=== PATIENT | female | born 1990 | race Caucasian/White ===

== ENCOUNTER 2019-04-15 01:48 | Outpatient (CLI) | payer MEDICAID, SELFPAY ==
--- NOTE | 2019-04-15 12:53 | DI.US_ITS ---
EXAM: US AXILLA RT CLINICAL HISTORY: AXILLARY ACUTE LYMPHANGITIS RT L03.121. TECHNIQUE: Ultrasound performed using standard protocol. COMPARISON: No exams were available for comparison FINDINGS: The ultrasound examination of the right axilla reveals no evidence of a mass or lymphadenopathy.
--- NOTE | 2019-04-15 13:14 | DI.RAD_ITS ---
EXAM: XR KNEE RT 3V AP,LAT,CHOLO INDICATION: KNEE JOINT PAIN M25.561 WEIGHT BEARING COMPARISON: No exams were available for comparison TECHNIQUE: 2D digital imaging was performed. FINDINGS: The bony structures are normally mineralized. Joint spaces intact. There is no evidence of a joint ef fusion. There is no evidence of a fracture or dislocation.
== END 2019-04-15 02:08 ==
PROVIDERS: PCP Nurse Practitioner Family; Visit Provider Nurse Practitioner Family
DX: M25.561 Pain in right knee (principal); L03.121 Acute lymphangitis of right axilla
CPT/HCPCS: 73562; 76642

== ENCOUNTER 2019-05-18 12:56 | Outpatient (CLI) | payer MEDICAID, SELFPAY ==
--- NOTE | 2019-05-18 10:47 | DI.RAD_ITS ---
EXAM: XR KNEES MERCHANT ONLY INDICATION: f/u. COMPARISON: XR KNEE RT 3V AP,LAT,CHOLO from 04/15/2019 TECHNIQUE: 2D digital imaging was performed. FINDINGS: Merchant projections of both knees reveal no evident abnormality involving the patellofemoral joint.
== END 2019-05-18 13:16 ==
PROVIDERS: PCP Nurse Practitioner Family; Visit Provider Orthopaedic Surgery
DX: M25.561 Pain in right knee (principal); M22.2X1 Patellofemoral disorders, right knee
CPT/HCPCS: 73565

== ENCOUNTER 2020-02-24 16:53 | Outpatient (REF) | payer MEDICAID, SELFPAY ==
[2020-02-27 15:17] LABS: SARS-CoV-2 RNA Undetected (Undetected); SARS-CoV-2 Specimen Source Nasopharynx
== END 2020-02-24 17:13 ==
LOC: NCHCN 16:53
PROVIDERS: PCP Nurse Practitioner Family; Visit Provider Physician Assistant
DX: R05 Cough (principal)
CPT/HCPCS: U0003

== ENCOUNTER 2020-03-16 09:13 | Outpatient (REF) | payer MEDICAID, SELFPAY ==
[2020-03-16 21:38] LABS: BUN 8 mg/dL (7-18); Calcium 8.7 mg/dL (8.5-10.1); Chloride 105 mmol/L (98-107); Glucose 85 mg/dL (74-106); Potassium 4.1 mmol/L (3.5-5.1); Sodium 140 mmol/L (136-145); TSH (W/Ref FT4) 1.36 uIU/mL (0.36-3.74)
[2020-03-19 09:26] LABS: Vitamin D 25 Total 20.4 ng/ml (30-100)
== END 2020-03-16 09:33 ==
LOC: NCHCN 09:13
PROVIDERS: PCP Nurse Practitioner Family; Visit Provider Nurse Practitioner Psychiatric/Mental Health
DX: F43.0 Acute stress reaction (principal)
CPT/HCPCS: 80048; 82306; 84443

== ENCOUNTER 2020-06-14 19:53 | Outpatient (REF) | payer MEDICAID, SELFPAY ==
[2020-06-18 21:52] LABS: Patient Race White; SARS-CoV-2 RNA Undetected (Undetected); SARS-CoV-2 Specimen Source Nasal
== END 2020-06-14 20:13 ==
LOC: NCHCN 19:53
PROVIDERS: PCP Nurse Practitioner Family; Visit Provider Nurse Practitioner Family
DX: R09.81 Nasal congestion (principal)
CPT/HCPCS: U0003

== ENCOUNTER 2020-08-22 16:23 | Outpatient (REF) | payer MEDICAID, SELFPAY ==
[2020-08-22 19:47] LABS: HCT 38.1 % (36.0-46.0); HGB 12.8 g/dL (11.2-15.7); MCH 29.6 pg (27.0-33.0); MCHC 33.6 % (32.0-36.0); MCV 88.2 fL (80-95); MPV 9.7 fL (8.0-11.0); Platelet Count 399 10^3/uL (130-400); RBC 4.32 10^6/uL (3.93-5.22); RDW 12.3 % (11.7-14.6); RDW-SD 40.1 fL; WBC 7.23 10^3/uL (4.4-10.8)
[2020-08-22 20:08] LABS: C-Reactive Protein 0.45 mg/dL (0.0-0.3)
[2020-08-22 20:24] LABS: ESR 9 mm/hr (0-20)
[2020-08-24 10:43] LABS: Lyme Ab w Rflx to Lyme Confirm Negative (Negative)
[2020-08-24 14:28] LABS: ANA Interpretation Negative (Negative)
== END 2020-08-22 16:43 ==
LOC: NCHCN 16:23
PROVIDERS: PCP Nurse Practitioner Family; Visit Provider Physician Assistant
DX: L08.9 Local infection of the skin and subcutaneous tissue, unspecified (principal)
CPT/HCPCS: 85027; 85652; 86038; 86140; 86618

== ENCOUNTER 2020-09-17 03:30 | Outpatient (CLI) | payer MEDICAID, SELFPAY ==
--- NOTE | 2020-09-24 14:56 | PDOC.EEG ---
Neurology EEG EEG: [facility] Department of Neurology LONG-TERM AMBULATORY EEG REPORT Date of Recordin09/17/20 at 10:35:08 to 09/18/20 at 11:18:13 Interpreting Physician: Dr. Betsy Pickering PCP/Referring Provider: Maureen Fan NP; Curtis Gregory NP Reason for study: Ms. Perez is a 29 year-old woman with various spells including disassociation, concerning for seizure. Current Medications: Home Medications Medication Instructions Recorded Confirmed Type norelgestromin 150 mcg-e.estradiol 1 patch TRANSDERMAL Q7D 06/08/20 09/03/20 History 35 mcg/24 hr weekly transderm patch lamotrigine 25 mg tablet 125 mg PO ONCE tab 09/03/20 09/03/20 History METHODS: An 18-channel digitized electroencephalogram was recorded in the ambulatory setting with video. The 10/20 international system of electrode placement was used and bipolar and referential electrode montages were recorded. In addition to EEG the patient was monitored for EKG and by video. Activation procedures of photic stimulation and hyperventilation were performed if applicable. The duration of the recording was ~25 hours. DESCRIPTION OF EEG: Waking background activity: During maximal wakefulness a 10-Hz posterior background rhythm was present which was well-modulated, symmetrical, reactive to eye opening, and of moderate voltage. Faster frequencies were present in the bilateral anterior head regions. There was a normal anterior-posterior voltage gradient. Drowsy and sleeping background activity: During drowsiness, there was attenuation of the posterior dominant background rhythm and vertex waves. Normal stage II and III sleep was present with symmetrical sleep spindles, K-complexes, and vertex waves with slowing of the background rhythm to delta/theta frequencies. REM sleep manifested by rapid lateral eye movements and faster background rhythms was recorded. Arousal was unremarkable. Interictal abnormalities: none. Ictal findings: Event #1 on 09/17/20 at ~1400 -Clinical manifestations: small arm contractions x 3 seconds -EEG findings: No abnormal or epileptiform activity noted. Event #2 on 09/17/20 at ~1440 -Clinical manifestations: I felt like I was big but hands were small x 5 seconds -EEG findings: No abnormal or epileptiform activity noted. Event #3 on 09/17/20 at ~2140 -Clinical manifestations: room was spinning, vertigo, x 5min -EEG findings: EEG with diffuse artifact before, during, and after with no obvious abnormal or epileptiform activity noted, though the recording is obscured. Activating Procedures: Photic stimulation was performed which produced no posterior driving response. Hyperventilation was performed with moderate effort and produced no physiological slowing of the background. EKG: EKG revealed normal sinus rhythm. INTERPRETATION: This long-term EEG is normal during the awake and sleep states as well as during the activation procedures. Several typical events captured without associated EEG abnormalities. PRIOR EEG: none CLINICAL CORRELATION: No focal regions of cerebral dysfunction or epileptiform activity was present. The above captured events were not clearly epileptic. Epilepsy remains a clinical diagnosis and a normal EEG does not rule out epilepsy. Clinical correlation is advised. Betsy Pickering MD
== END 2020-09-17 03:31 | disposition home or self-care (01) ==
LOC: RT 03:30
PROVIDERS: PCP Nurse Practitioner Family; Visit Provider Psychiatry & Neurology Neurology
DX: R29.818 Other symptoms and signs involving the nervous system (principal)
CPT/HCPCS: 95714

== ENCOUNTER 2021-11-08 15:02 | Outpatient (REF) | payer MEDICAID, SELFPAY ==
--- NOTE | 2021-11-08 14:20 | PAPFT_PTH ---
PATIENT: Jessenia Perez LOC: [facility] U#:[id number] AGE/SX: 31/F ROOM: RE11/08/[address]: NATALIE Schneider : 1990 BED: DIS: 11/08/2021 SPEC #: [id number] RECD: 11/08/21 17:49 STATUS: SAROJ RERomina #: [id number] EWELINA: 11/08/21 14:[address]: Jessenia Hernández DEPT: [facility] Cytology RECD BY: Tsering Bryan ENTERED: 11/08/21 17:50 SP TYPE: PAPFT OTHR DR: Curtis Gregory Tissues: 1 - CX/ENDOCX FOR PAP SMEARS Procedures: PAP THIN PREP/[facility] Screening Comments: [id number]
[2021-11-10 13:16] LABS: Chlamydia Result Negative (Negative); GC Result Negative (Negative)
== END 2021-11-08 15:03 | disposition home or self-care (01) ==
LOC: LBN 15:02
PROVIDERS: PCP Nurse Practitioner Family; Visit Provider Nurse Practitioner Family
DX: Z11.3 Encounter for screening for infections with a predominantly sexual mode of transmission (principal); Z12.4 Encounter for screening for malignant neoplasm of cervix
CPT/HCPCS: 87491; 87591; 88142

== ENCOUNTER 2022-02-13 13:09 | Outpatient (REF) | payer MEDICAID, SELFPAY ==
[2022-02-13 18:53] LABS: Hemoglobin A1C 5.5 % (<5.7)
[2022-02-13 20:39] LABS: Calculated LDL 118 mg/dL (<100); Cholesterol 200 mg/dL (<200); HDL Cholesterol 64 mg/dL (40-60); TSH (W/Ref FT4) 1.18 uIU/mL (0.36-3.74); Triglyceride 93 mg/dL (<150); Vitamin B12 205 pg/mL (193-986)
[2022-02-18 16:44] LABS: 1,25-Dihydroxyvitamin D 86 pg/mL (18-78)
== END 2022-02-13 13:10 | disposition home or self-care (01) ==
LOC: LBN 13:09
PROVIDERS: PCP Nurse Practitioner Family; Visit Provider Family Medicine
DX: F33.1 Major depressive disorder, recurrent, moderate (principal); F43.0 Acute stress reaction; Z00.00 Encounter for general adult medical examination without abnormal findings
CPT/HCPCS: 80061; 82607; 82652; 83036; 84443

== ENCOUNTER 2022-03-18 04:06 | Outpatient (CLI) | payer MEDICAID, SELFPAY ==
--- NOTE | 2022-03-18 15:00 | NS.NUTBLAN_ITS ---
Jessenia was referred for weight management education. 31 yo female 5'4 175 lbs BMI: 29 Usual Body Weight: 135-140 lbs Meds: Abilify, Xulane patch (estrogin/progestin) Diet Recall: bagel with turkey and coffee for B, L: 6 inch subway, D: tacos. ice cream 4-5 times per week Exercise: Gym 10-15 min cardio with 30 min lifting 3-4 times per week PMH: anxiety, depression. Had eating disorder years ago with lowest weight of 94.6 lbs. Never hospitalized for anorexia. Was able to recover without professional help. Reports binging eating now more common. Jessenia reports that she has gained over 30 lbs in last 2 years, since starting mood stabilizers. She has been on her control patch for 4 years. Reports ganing 10 lbs with patch. She recently was switched to Abilify that is more weight neutral. She has been trying to lose weight but has been unsuccessful. Has strong fam hx of DM. Suspect Jessenia developed insulin resistance after taking mood stabilizers. Today's session included how to follow a lower carb diet that provides 5575-1785 kcal, 80-100 g CHO, 60-80 g protein, 40-50 g fat. Recommend 4 hours cardio per week with 2 hours of lifting. Encouraged use of fermin on phone to track carb intake. With hx of anorexia, will need to watch for OCD behaviors with weight, food intake, exercise. Goal: 25 lbs weight loss in next 90 days. Goal weight: 135-145 lbs Follow up scheduled for 04/17/22 at 4 pm.
== END 2022-03-18 04:07 | disposition home or self-care (01) ==
LOC: DS 04:07
PROVIDERS: PCP Nurse Practitioner Family; Visit Provider Dietitian, Registered
DX: E66.3 Overweight (principal); Z71.3 Dietary counseling and surveillance
CPT/HCPCS: 97802

== ENCOUNTER → 2022-07-07 16:32 | Outpatient (CLI) | payer MEDICAID, SELFPAY ==
--- NOTE | 2022-07-07 16:00 | DI.RAD_ITS ---
Exam(s) XR CHEST 2V PA LATERAL EXAM: XR CHEST 2V PA LATERAL CLINICAL HISTORY: COUGH-R05.9...R/O PNEUMONIA. TECHNIQUE: 2D digital imaging was performed. COMPARISON: No exams were available for comparison FINDINGS: 2 views: Heart size is normal. The mediastinum is not widened. Lungs are clear. No infiltrates nor pleural effusions. IMPRESSION: No acute pulmonary findings. DATA REPOSITORY: RADIATION DOSE DELIVERED:
== END ==
PROVIDERS: Visit Provider Nurse Practitioner Family
DX: R05.8 Other specified cough (principal)
CPT/HCPCS: 71046

== ENCOUNTER 2023-12-03 15:40 | Outpatient (REF) | payer OTHER, SELFPAY ==
[2023-12-03 18:55] LABS: Abs Immature Grans 0.02 10^3/uL (0.0-0.06); Absolute Basophil Count 0.06 10^3/uL (0.0-0.2); Absolute Eosinophil Count 0.22 10^3/uL (0.0-0.7); Absolute Lymphocyte Count 2.95 10^3/uL (1.2-3.4); Absolute Neutrophil Count 5.68 10^3/uL (1.2-6.7); Basophils % 0.6 %; Eosinophils % 2.3 %; HCT 39.8 % (36.0-46.0); HGB 13.2 g/dL (11.2-15.7); Immature Grans % 0.2 %; Lymphocytes % 30.6 %; MCH 29.5 pg (27.0-33.0); MCHC 33.2 % (32.0-36.0); MCV 89 fL (80-95); MPV 8.9 fL (8.0-11.0); Monocytes % 7.3 %; Platelet Count 418 10^3/uL (130-400); RBC 4.48 10^6/uL (3.93-5.22); RDW 12.2 % (11.7-14.6); RDW-SD 39.8 fL; WBC 9.63 10^3/uL (4.4-10.8)
[2023-12-03 19:28] LABS: ALT 24 U/L (14-59); AST 15 U/L (15-37); Albumin 3.5 g/dL (3.4-5.0); Alkaline Phosphatase 89 U/L (46-116); Anion Gap 9.5 mmol/L (3-11); BUN 9 mg/dL (7-18); Bilirubin, Total 0.4 mg/dL (0.2-1.0); CO2 26.5 mmol/L (21.0-32.0); CREATININE 0.7 mg/dL (0.55-1.02); Chloride 105 mmol/L (98-107); Estimated GFR 118.51 (mL/min/1.73m2); Ferritin 40 ng/mL (8-252); Glucose 76 mg/dL (74-106); Potassium 3.9 mmol/L (3.5-5.1); Sodium 141 mmol/L (136-145); TSH (W/Ref FT4) 1.26 uIU/mL (0.36-3.74); Total Protein 6.8 g/dL (6.4-8.2)
[2023-12-03 19:29] LABS: Iron 68 ug/dL (50-170); Total Iron Binding Capacity 411 ug/dL (250-450); Transferrin Sat 17 % (15-50)
== END 2023-12-03 15:41 | disposition home or self-care (01) ==
LOC: NCHCN 15:40
PROVIDERS: Visit Provider Nurse Practitioner Family
DX: R53.83 Other fatigue (principal)
CPT/HCPCS: 80053; 82728; 83540; 83550; 84443; 85025

== ENCOUNTER 2024-04-07 21:03 | Outpatient (REF) | payer OTHER, SELFPAY ==
--- OUTSIDE RECORDS SUMMARY | 2024-04-07 21:04 | XMS_ITS | Encounter Summary ---
Author Organization [facility] Address [address] [place] [address] Care Team Providers Care Retail Product Demo Specialist Name Role Phone Unknown, Provider Primary Care Provider [phone] Encounter Details Date Type Department Care Team (Late st Contact Info) Description 11/11/2021 Lab Requisition [facility] Pathology & Laboratory Medicine - [facility] [address] [place] [address] Jessenia Hernández, [facility] [address] [place] [phone] Encounter for other general examination Social History Tobacco Use Types Packs/Day Years Used Date Smoking Tobacco: Never Assessed Sex and Gender Information Value Date Recorded Sex Assigned at Not on file Gender Identity Not on file Sexual Orientation Not on file documented as of this encounter Plan of Treatment Not on file documented as of this encounter Procedures Procedure Name Priority Date/Time Associated Diagnosis Comments PAP TEST Today 11/08/2021 2:20 EDT Encounter for other general examination documented in this encounter Results * PAP TEST (11/08/2021 2:20 EDT) Specimens A. Cervix and/or Endocervix , ThinPrep Imaging System with Manual Evaluation 11/12/2021 16:04 T [facility] Specimen Adequacy Satisfactory for Evaluation - transformation zone component absent 11/12/2021 16:04 EDT [facility] General Categorization Negative for intraepithelial lesion or malignancy 11/12/2021 16:04 T [facility] Attestation . 11/12/2021 16:04 T [facility] at 1604 Clinical History SEE BELOW 11/13/19 16:04 EDT [facility] Performing Lab [facility] 11/12/2021 16:04 EDT [facility] Scanned Images 11/12/2021 16:04 EDT [facility] Papanicolaou smear specimen (specimen) CERVIX UTERI STRUCTURE / Unknown 11/08/2021 2:20 EDT 11/11/2021 11:27 EDT Jessenia Hernández WHITESMITH PATHOLOGY ORDERABLES [facility] [address] [place] [address] documented in this encounter Visit Diagnoses Diagnosis Encounter for other general examination documented in this encounter Care Teams Retail Product Demo Specialist Relationship Specialty Start Date End Date Unknown, Provider, PCP - General 10/21/13 documented as of this encounter
--- OUTSIDE RECORDS SUMMARY | 2024-04-07 21:04 | XMS_ITS | Referral Summary ---
Author Organization [facility] Address [address] [place] [address] Care Team Providers Care In School Suspension Aide Name Role Phone Unknown, Provider Primary Care Provider Social History Tobacco Use Types Packs/Day Years Used Date Smoking Tobacco: Never Assessed Sex and Gender Information Value Date Recorded Sex Assigned at Not on file Gender Identity Not on file Sexual Orientation Not on file Plan of Treatment Not on file Care Teams In School Suspension Aide Relationship Specialty Start Date End Date Unknown, Provider, PCP - General 10/21/13
--- OUTSIDE RECORDS SUMMARY | 2024-04-07 21:04 | XMS_ITS | Clinical Summary ---
Author Organization [facility] Address [address] [place] [address] Care Team Providers Care Carpet Winder Name Role Phone Unknown, Provider Primary Care Provider Social History Tobacco Use Types Packs/Day Years Used Date Smoking Tobacco: Never Assessed Sex and Gender Information Value Date Recorded Sex Assigned at Not on file Gender Identity Not on file Sexual Orientation Not on file Plan of Treatment Health Maintenance Due Date Last Done Comments Hepatitis C Screen 1990 Hepatitis B Vaccine (1 of 3 - 19+ 3-dose series) 10/08 COVID-19 Vaccine (2022- season) 2023 Care Teams Carpet Winder Relationship Specialty Start Date End Date Unknown, Provider, PCP - General 10/21/13
--- OUTSIDE RECORDS SUMMARY | 2024-04-07 21:04 | XMS_ITS | Encounter Summary ---
Author Organization [facility] Address [address] [place] [address] Care Team Providers Care Marketing Reporting Analyst Name Role Phone Unknown, Provider Primary Care Provider Encounter Details Date Type Department Care Team (Late st Contact Info) Description 11/09/2021 Lab Requisition [facility] Pathology & Laboratory Medicine - [facility] [address] [place] [address] Outr Resulting Lab, Provider Social History Tobacco Use Types Packs/Day Years Used Date Smoking Tobacco: Never Assessed Sex and Gender Information Value Date Recorded Sex Assigned at Not on file Gender Identity Not on file Sexual Orientation Not on file documented as of this encounter Plan of Treatment Not on file documented as of this encounter Procedures Procedure Name Priority Date/Time Associated Diagnosis Comments CHLAMYDIA/N. GONORRHOEAE AMPLIFIED NUCLEIC ACID Routine 11/08/2021 14:20 EDT documented in this encounter Results * CHLAMYDIA/N. GONORRHOEAE AMPLIFIED RNA (11/08/2021 14:20 EDT) Neisseria gonorrhoeae Result Negative Negative 11/10/2021 13:10 EDT [facility] Chlamydia trachomatis Result Negative Negative 11/10/2021 13:10 EDT [facility] Swab ENTIRE ENDOCERVIX / Unknown 11/08/2021 14:20 EDT 11/09/2021 22:25 EDT Provider Outr Resulting Lab MICROBIOLOGY - GENERAL ORDERABLES [facility] [address] [place] [address] documented in this encounter Visit Diagnoses Not on filedocumented in this encounter Care Teams Marketing Reporting Analyst Relationship Specialty Start Date End Date Unknown, Provider, PCP - General 10/21/13 documented as of this encounter
--- OUTSIDE RECORDS SUMMARY | 2024-04-07 21:05 | XMS_ITS | Patient Health Record ---
Author Organization [facility] Address [address] [place], [place] [id number] Care Team Providers Care Core Cutter And Reamer Name Role Phone Earlene Singh Primary Care Provider Allergies Allergen (clinical drug ingredient) Drug/Non Drug Allergy documented on EMR Reaction Allergy Type Onset Date Status bupropion buPROPion HCl Unknown Drug Allergy Act jayson Reason For Referral No Information Medications Medication SIG (Take, Route, Fr equency, Duration) Notes Start Date End Date Status Vyvanse 30 MG 1 capsule in the mor abeba Orally Once a day 08/29/2022 Active ARIPiprazole 10 MG TAKE 1 TABLET BY JIM TH EVERY DAY Orally Once a day Active Vitamin B 12 500 MCG 1 tablet Orally Once a day Active L-Methylfolate 15 MG 1 tablet Orally Once a day Active Xulane 150-35 MCG/24HR as directed Transdermal Active Immunizations Vaccine Route Administration Date Status Comme nts Varicella [facility] [id number] Unknown 03/05/2009 Administered Menactra MCV4 [facility] [id number] Unknown 03/05/2009 Administere d Influenza Offsite [facility] Purch ased Vaccine 67381 Unknown 07/01/2019 Administered Influenza H1N1 Unknown 07/04/2009 Administered COVID-19 Pfizer Unknown 10/03/2020 Administered COVID-19 Pfizer Unknown 10/31/2020 Administered COVID-19 Pfizer Unknown 08/17/2021 Administered Social History Tobacco Use: Social History Observation Description Date Details (start date - stop date) Never Smoker NA - NA Sex Assigned At : Social History Observation Description Sex Assigned At Female SMOKING STATUS: Question Answer Notes Are you a: Nonsmoker PRAPARE Question Answer Notes Date Completed/Updated: 12/28/2021 What is your current housing situation? I have h ousing Are you worried about losing your housing? No What is the highest level of school that you have finished? 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 Check all that apply I do not have problems meeting my needs Has lack of transportation k ept you from medical appointments, meetings, work or from getting things needed for daily living? No How often do you see or talk to people that you care about and feel close to? (For example: talking to friends on the phone, visiting friends or family, going to yarsani or club meetings) More than 5 times a week How stressed are you? Stress is when someone feels tense, nervous, anxious, or can't sleep at night because their mind is troubled Quite a bit In the past year have you sp ent more than 2 nights in a row in a senior living, [facility], [facility], or juvenile correctional facility? No Are you a refugee? No What country are you from? [place] Do you feel physically and e motionally safe where you currently live? Yes In the past year, have you b een afraid of your partner or ex-partner? No PRAPARE Score: 3 Problems Problem Type SNOMED Code ICD Code Onset Dates Problem Status W/U Status Risk Notes Problem Anxiety (43159375) Anxiety (F41.9) Active confirmed Problem Migraine (99309797) Migraines (G43.909) Active confirmed Problem Attention deficit disorder (87398856) ADD (attention deficit disorder) (F90.0) Active confirmed Problem Recurrent major depression (13934408) Major depression, recurrent, chronic (F33.9) Active confirmed Problem Temporal lobe epilepsy (643025659) Temporal lobe epilepsy (G40.209) Active confirmed Plan Of Treatment No Information Insurance Providers Payer Name Payer Address Payer Phone Subscriber Number Group Number Insured Name Patient Relationship to Insured Coverage Start Date Coverage End Date [place] [address] [place] [phone] [id number] Jessenia Perez Self - patient is the insured Medical (General) History Medical History History ICD Code Depression Anxiety H/O Covid 19 Temporal Lobe Seizures Migraines Dactylitis of Skin Surgical History Surgery Date(Month/Year) Appendectomy 2001
--- OUTSIDE RECORDS SUMMARY | 2024-04-07 21:05 | XMS_ITS | Encounter Summary ---
Author Organization [facility] Address [address] [place] [address] Care Team Providers Care Wheel Adjuster Name Role Phone Unknown, Provider Primary Care Provider Encounter Details Date Type Department Care Team (Late st Contact Info) Description 10/19/2013 Results Only [facility] Laboratory Services - [facility] ([facility] [address], [place] [address] Blanca Chinchilla NP [address] [place] [address] Social History Tobacco Use Types Packs/Day Years Used Date Smoking Tobacco: Never Assessed Sex and Gender Information Value Date Recorded Sex Assigned at Not on file Gender Identity Not on file Sexual Orientation Not on file documented as of this encounter Plan of Treatment Not on file documented as of this encounter Procedures Procedure Name Priority Date/Time Associated Diagnosis Comments PAP TEST- RESULT ONLY Routine 10/19/2013 0:00 EDT documented in this encounter Results * PAP TEST- RESULT ONLY (10/19/2013 0:00 EDT) Pathology Report: CYTOPATHOLOGY REPORT Reports generated via electronic interface contain original data; however they are lacking the format of the original report. Caution should be taken when reading/interpreti ng unformatted reports. Name: ? JESSENIA PEREZ ? Accession #: ? [id number] : ? 1990 (Age: 23) ??F ?Collect Date: ? 10/19/2013 Location: ? [facility] ? Receive Date: ? 10/21/2013 Provider: ?BLANCA CHINCHILLA NUCLEAR MEDICAL TECHNOLOGIST Copy to: ? Specimen/Source: ?Pap Test, Cervix/Endocervix, ThinPrep Imaging System with manual evaluation Last Menstrual Period: ? 09/22/13 Hormonal/Contracep tive Status: ? Oral contraceptives ? SPECIMEN ADEQUACY ? Satisfactory for Evaluation - transformation zone component present GENERAL CATEGORIZATION ? Negative for Intraepithelial Lesion or Malignancy INTERPRETATION ? Reactive cellular changes associated with inflammation present (includes repair). Shift in curt present suggestive of bacterial vaginosis. ? Document reviewed and electronically signed by: ? MARY ELLEN SORIANO MD ? Report Date: ??10/26/2013 18:18 End of Report [facility] 10/19/2013 10/21/2013 Blanca Chinchilla NP PATHOLOGY ORDERABLES Performing Organization Address City/State/[place] Co de Phone Number [facility] [address] [place] [address] documented in this encounter Visit Diagnoses Not on filedocumented in this encounter Care Teams Wheel Adjuster Relationship Specialty Start Date End Date Unknown, Provider, PCP - General 10/21/13 documented as of this encounter
--- OUTSIDE RECORDS SUMMARY | 2024-04-07 21:05 | XMS_ITS | Encounter Summary ---
Author Organization [facility] Address [address] [place] [address] Care Team Providers Care Brake Drum Molder Name Role Phone Unknown, Provider Primary Care Provider Encounter Details Date Type Department Care Team (Late st Contact Info) Description 08/23/2020 Lab Requisition [facility] Pathology & Laboratory Medicine - [facility] [address] [place] [address] Outr Resulting Lab, Provider Social History Tobacco [...] Procedure Name Priority Date/Time Associated Diagnosis Comments LYME AB Routine 08/22/2020 15:50 EST ANTI NUCLEAR AB (OMAR), IFA Routine 08/22/2020 15:50 EST documented in this encounter Results * LYME AB (08/22/2020 15:50 EST) Lyme Ab Negative Negative 08/24/2020 10:38 EST [facility] Comment:New 3rd generation a ssay in use 01/04/2020 Blood VENOUS BLOOD / Unknown 08/22/2020 15:50 EST 08/23/2020 15:50 EST Provider Outr Resulting Lab IMMUNOLOGY A ND SEROLOGY ORDERABLES [facility] [address] [place] [address] * ANTI NUCLEAR AB (OMAR), IFA (08/22/2020 15:50 EST) OMAR Interpretation Negative Negative 2020 14:24 EST [facility] Comment:No titer performed, OMAR Screen is negative. Blood VENOUS BLOOD / Unknown 08/22/2020 15:50 EST 08/23/2020 15:50 EST Narrative [facility] - 08/24/2020 14:24 EST Results were obtained with the INOVA NOVA Lite HEp-2 OMAR Kit by indirect immunofluorescence. Provider Outr Resulting Lab IMMUNOLOGY A ND SEROLOGY ORDERABLES [facility] [address] [place] [address] documented in this encounter Visit Diagnoses Not on filedocumented in this encounter Care Teams Brake Drum Molder Relationship Specialty Start Date End Date Unknown, Provider, PCP - General 10/21/13 documented as of this encounter
[2024-04-07 22:02] LABS: Bacteria Few HPF (Negative); C & S Indicated? C&S Done As Ordered; Casts Negative LPF (Negative); Crystals Negative HPF (Negative); Epithelial Cells Few HPF (Negative); Mucus Negative (Negative)
[2024-04-09 00:09] LABS: HSV 1 DNA Result Negative (Negative); HSV 2 DNA Result Positive (Negative)
== END 2024-04-07 21:04 | disposition home or self-care (01) ==
LOC: LBN 21:03
PROVIDERS: Visit Provider Physician Assistant Medical
DX: R30.0 Dysuria (principal); R82.89 Other abnormal findings on cytological and histological examination of urine
CPT/HCPCS: 87529; 81015; 87086

== ENCOUNTER 2025-04-28 17:39 | Outpatient (REF) | payer OTHER, SELFPAY ==
[2025-05-01 11:57] LABS: Chlamydia Result Negative (Negative); GC Result Negative (Negative)
== END 2025-04-28 17:40 | disposition home or self-care (01) ==
LOC: LBN 17:39
PROVIDERS: PCP Nurse Practitioner Family; Visit Provider Obstetrics & Gynecology
DX: Z12.4 Encounter for screening for malignant neoplasm of cervix (principal)
CPT/HCPCS: 87491; 87591; 88142; 87624